=== PATIENT | male | born 1995 | race Caucasian/White ===

== ENCOUNTER 2017-05-08 11:55 | Emergency (ER) | payer OTHER ==
[~2017-05-08] VITALS: Ht 175.3 cm; Wt 81.1 kg
[2017-05-08 11:57] VITALS: Ht 175.3 cm; Wt 81.1 kg
[2017-05-08] MEDS ORDERED: DiphenhydrAMINE HCL 50 MG/ML VIAL IV STA (13:07)
[2017-05-08] MEDS ORDERED: PROCHLORPERAZINE 5 MG/ML 2 ML VIAL IV STA (13:07)
[2017-05-08] MEDS ORDERED: SODIUM CHLORIDE 0.9% 1000ML 2,000 ML IV STA (13:07)
[2017-05-08 13:27] LABS: BASO % 0.2 %; BASO ABS # 0.02 K/uL (0-0.2); COMPLETE YES; HEMATOCRIT 43.7 % (42-52); IG% 0.3 %; LYMPH % 8.4 %; LYMPH ABS # 0.82 K/uL (1.2-3.4); MEAN CELL VOLUME 83.2 fL (80-100); MEAN CORPUSCULAR HEMOGLOBIN 29.3 pg (25-34); MEAN CORPUSCULAR HGB CONC 35.2 g/dl (32-36); MONO % 6.1 %; PLATELET COUNT 289 K/uL (130-400); RED BLOOD COUNT 5.25 M/uL (4.7-6.1); WHITE BLOOD COUNT 9.78 K/uL (4.8-10.8)
[2017-05-08 13:42] LABS: INR 1.1 (0.9-1.1); PROTHROMBIN TIME (PATIENT) 11.3 SECONDS (9.0-12.0)
--- NOTE | 2017-05-08 13:44 | EMERGENCY ROOM VISIT NOTE ---
History Report prepared by Mituliblisa: Leticia Mccabe Under the Supervision of: Dr. Ana Luisa Harris M.D. First contact with patient: 12:18 Chief Complaint: ABDOMINAL PAIN Stated Complaint: STOMACH AND DEHYDRATION Nursing Triage Summary: Pt stated that he has an ulcer. When the pt consumes alcohol it irriates his ulcer. Pt stated that he was drinking an unknown amount of alcohol last evening. Pt was woke up by stabbing abdominal pain. Pt started to vomit. Emesis is red in color wo clots. Pt stated the pain is a 10 out of 10. Pt stated "If I drink too much this happens." History of Present Illness The patient is a 22 year old male who presents to the Emergency Room with complaints of severe diffuse abdominal pain starting this morning. He describes it as a cramping pain. The patient has an ulcer. He drank an unknown amount of alcohol last night. The patient stopped drinking around 1 am last night. He woke up this morning with severe pain. The patient started vomiting this morning. He denies any blood in vomit. He drank some red Gatorade a few minutes ago and is now having red colored vomit. He denies any fevers, chills, or any other complaints. He does not have any other medical problems. He did not use any recreational drugs. Source of History: patient Onset: this morning Position: abdomen (diffuse) Symptom Intensity: severe Quality: cramping Associated Symptoms: + vomiting, No fevers, No chills Review of Systems See HPI for pertinent positives & negatives. A total of 10 systems reviewed and were otherwise negative. Past Medical & Surgical Medical Problems: (1) Gastric ulcer Family History Patient reports no known family medical history. Social History Smoking Status: Former Smoker Alcohol Use: heavy Marital Status: single Housing Status: lives with friends Occupation Status: [employer] student Current/Historical Medications Scheduled Omeprazole (Prilosec), 20 MG PO DAILY Allergies Coded Allergies: No Known Allergies (Unverified , 08/23/16) Physical Exam Vital Signs Date Time Temp Pulse Resp B/P (MAP) Pulse Ox O2 Delivery O2 Flow Rate FiO2 05/08/17 17:07 36.7 66 14 110/70 99 05/08/17 15:38 70 16 108/69 98 Room Air 05/08/17 13:45 79 05/08/17 13:34 86 16 110/71 98 Room Air 05/08/17 11:57 36.7 79 18 137/77 100 Room Air Physical Exam Vital signs reviewed. General: Well-appearing, anxious, hyperventilating, in no significant distress. Clear red vomit at the bedside. HEENT: No scleral icterus, PERRLA, neck supple. Atraumatic. Cardiovascular: Regular rate and rhythm, no extra sounds. Pulmonary: Clear to auscultation bilaterally, normal work of breathing. Abdomen: Soft, diffusely tender abdomen particularly in the epigastric region, nondistended, positive bowel sounds. Musculoskeletal: Atraumatic, no peripheral edema. Neurologic: Patient awake alert and oriented x 3. Skin: Warm, dry, no rash Medical Decision & Procedures ER Provider Diagnostic Interpretation: X-ray results as stated below per interpretation by me and the radiologist: PA CHEST RADIOGRAPH AND UPRIGHT AND SUPINE AP RADIOGRAPHS OF THE ABDOMEN CLINICAL HISTORY: Abdominal pain, vomiting and gastritis. COMPARISON STUDY: No previous studies for comparison. FINDINGS: Lung volumes are normal. Lungs are clear. There is no pneumothorax or pleural effusion. Cardiac size is normal. Mediastinal contours are normal. There is no free air. The bowel gas pattern is normal. A right pelvic calcification likely reflects a phlebolith. IMPRESSION: 1. No free air or evidence of bowel obstruction. 2. No acute cardiomegaly findings. Electronically signed by: Yunier Murry M.D. 05/08/2017 4:48 PM Dictated Date/Time: 05/08/2017 4:47 PM Laboratory Results 05/08/17 13:15 Red Blood Count 5.25, Mean Corpuscular Volume 83.2, Mean Corpuscular Hemoglobin 29.3, Mean Corpuscular Hemoglobin Concent 35.2, Mean Platelet Volume 10.0, Neutrophils (%) (Auto) 85.0, Lymphocytes (%) (Auto) 8.4, Monocytes (%) (Auto) 6.1, Eosinophils (%) (Auto) 0.0, Basophils (%) (Auto) 0.2, Neutrophils # (Auto) 8.31, Lymphocytes # (Auto) 0.82, Monocytes # (Auto) 0.60, Eosinophils # (Auto) 0.00, Basophils # (Auto) 0.02 05/08/17 13:15 Test 05/08/17 13:15 05/08/17 16:05 White Blood Count 9.78 K/uL (4.8-10.8) Red Blood Count 5.25 M/uL (4.7-6.1) Hemoglobin 15.4 g/dL (14.0-18.0) Hematocrit 43.7 % (42-52) Mean Corpuscular Volume 83.2 fL (80-100) Mean Corpuscular Hemoglobin 29.3 pg (25-34) Mean Corpuscular Hemoglobin Concent 35.2 g/dl (32-36) Platelet Count 289 K/uL (130-400) Mean Platelet Volume 10.0 fL (7.4-10.4) Neutrophils (%) (Auto) 85.0 % Lymphocytes (%) (Auto) 8.4 % Monocytes (%) (Auto) 6.1 % Eosinophils (%) (Auto) 0.0 % Basophils (%) (Auto) 0.2 % Neutrophils # (Auto) 8.31 K/uL (1.4-6.5) Lymphocytes # (Auto) 0.82 K/uL (1.2-3.4) Monocytes # (Auto) 0.60 K/uL (0.11-0.59) Eosinophils # (Auto) 0.00 K/uL (0-0.5) Basophils # (Auto) 0.02 K/uL (0-0.2) RDW Standard Deviation 37.1 fL (36.4-46.3) RDW Coefficient of Variation 12.3 % (11.5-14.5) Immature Granulocyte % (Auto) 0.3 % Immature Granulocyte # (Auto) 0.03 K/uL (0.00-0.02) Prothrombin Time 11.3 SECONDS (9.0-12.0) Prothromb Time International Ratio 1.1 (0.9-1.1) Activated Partial Thromboplast Time 26.6 SECONDS (21.0-31.0) Partial Thromboplastin Ratio 1.0 Anion Gap 9.0 mmol/L (3-11) Est Creatinine Clear Calc Drug Dose 95.8 ml/min Estimated GFR () 98.2 Estimated GFR (Non- 84.7 BUN/Creatinine Ratio 9.8 (10-20) Calcium Level 10.2 mg/dl (8.5-10.1) Total Bilirubin 0.8 mg/dl (0.2-1) Direct Bilirubin 0.2 mg/dl (0-0.2) Aspartate Amino Transf (AST/SGOT) 33 U/L (15-37) Alanine Aminotransferase (ALT/SGPT) 32 U/L (12-78) Alkaline Phosphatase 66 U/L (45-117) Total Protein 8.0 gm/dl (6.4-8.2) Albumin 4.7 gm/dl (3.4-5.0) Urine Color YELLOW Urine Appearance CLEAR (CLEAR) Urine pH 7.5 (4.5-7.5) Urine Specific [place] 1.020 (1.000-1.030) Urine Protein NEG (NEG) Urine Glucose (UA) NEG (NEG) Urine Ketones 2+ (NEG) Urine Occult Blood NEG (NEG) Urine Nitrite NEG (NEG) Urine Bilirubin NEG (NEG) Urine Urobilinogen NEG (NEG) Urine Leukocyte Esterase NEG (NEG) Laboratory results per my review. Medications Administered Medications (Trade) Dose Ordered Sig/Anai Route Start Time Stop Time Status Last Admin Dose Admin Sodium Chloride 2,000 ml @ 999 mls/hr Q2H1M STAT IV 05/08/17 13:07 05/08/17 15:07 DC 05/08/17 13:21 999 MLS/HR Prochlorperazine Edisylate (Compazine Inj) 10 mg NOW STAT IV 05/08/17 13:07 05/08/17 13:09 DC 05/08/17 13:29 10 MG Diphenhydramine HCl (Benadryl Inj) 50 mg NOW STAT IV 05/08/17 13:07 05/08/17 13:09 DC 05/08/17 13:30 50 MG Pantoprazole Sodium 40 mg/ Syringe 10 ml @ 5 mls/min NOW ONCE IV 05/08/17 14:45 05/08/17 14:46 DC 05/08/17 15:08 5 MLS/MIN ED Course 1218: Past medical records reviewed. The patient was evaluated in room C12B. A complete history and physical examination was performed. 1307: Benadryl Inj 50 mg IV, Compazine Inj 10 mg IV, Sodium Chloride 2000 ml @ 999 mls/hr IV 1445: Pantoprazole Sodium 40 mg/Syringe 10 ml @ 5 mls/min IV 1701: Upon reevaluation, the patient appeared to have improvement of his symptoms. I discussed findings with him. He verbalized agreement of the treatment plan. He was discharged home. Medical Decision Medication Reconciliation: I attest that I have personally reviewed the patient' s current medication list. Blood Pressure Screening: Patient was found to have normal blood pressure on screening and does not require follow-up. Differential diagnosis: Etiologies such as peptic ulcer, perforated viscous, gastroenteritis, food borne illness, infections, appendicitis, diverticulitis, inflammatory bowel disease, obstruction, GI bleed, biliary pathology, as well as others were entertained. This patient was evaluated and appeared to be in no significant distress. IV access was obtained and laboratory work was drawn. Patient was hydrated with normal saline solution, given IV Benadryl, IV Compazine. Patient was later given IV Protonix. Abdominal x-ray series reveals no obstruction or free air. Laboratory work is fairly unrevealing. Patient was feeling improved. He was discharged to continue Prilosec 20 mg daily. He will avoid alcohol, particularly in excess. He was advised to avoid NSAIDs. He will drink plenty of clear fluid and advance his diet slowly as tolerated. He will return to the ER for worsening of symptoms or any medical concerns. Impression Primary Impression: Alcoholic gastritis Scribe Attestation The scribe's documentation has been prepared under my direction and personally reviewed by me in its entirety. I confirm that the note above accurately reflects all work, treatment, procedures, and medical decision making performed by me. Departure Information Dispostion Home / Self-Care Prescriptions Omeprazole (PRILOSEC) 20 Mg Capcr 20 MG PO DAILY, #14 CAP Prov: Ana Luisa Harris M.D. 05/08/17 Referrals No Doctor, Assigned (PCP) Forms HOME CARE DOCUMENTATION FORM, IMPORTANT VISIT INFORMATION Patient Instructions My [facility] Additional Instructions Diagnosis: Alcohol gastritis Prilosec 20 mg daily for the next 2 weeks. Drink plenty of clear fluids. Avoid alcohol, Aleve, ibuprofen, aspirin. Follow-up with your physician for reevaluation and consideration of gastroenterology referral for endoscopy. Return to the emergency department for worsening of symptoms or any medical concerns.
[2017-05-08 13:57] LABS: BUN/CREATININE RATIO 9.8 (10-20); CALCIUM 10.2 mg/dl (8.5-10.1); CREATININE 1.2 mg/dl (0.60-1.40); POTASSIUM 3.7 mmol/L (3.5-5.1)
[2017-05-08] MEDS ORDERED: PANTOprazole INJ 40 MG in SYRINGE 0 ML IV ONE (14:45)
[2017-05-08 16:22] LABS: URINE APPEARANCE CLEAR (CLEAR); URINE BILIRUBIN NEG (NEG); URINE COLOR YELLOW; URINE NITRITE NEG (NEG); URINE PH 7.5 (4.5-7.5); UROBILINOGEN NEG (NEG); ZZUR CULT IF INDIC CLEAN CATCH NO
[2017-05-08 16:30] LABS: MANUAL MICROSCOPIC REQUIRED? NO; REVIEW REQ? NO
--- NOTE | 2017-05-08 16:49 | DIAGNOSTIC IMAGING REPORT ---
PA CHEST RADIOGRAPH AND UPRIGHT AND SUPINE AP RADIOGRAPHS OF THE ABDOMEN CLINICAL HISTORY: Abdominal pain, vomiting and gastritis. COMPARISON STUDY: No previous studies for comparison. FINDINGS: Lung volumes are normal. Lungs are clear. There is no pneumothorax or pleural effusion. Cardiac size is normal. Mediastinal contours are normal. There is no free air. The bowel gas pattern is normal. A right pelvic calcification likely reflects a phlebolith. IMPRESSION: 1. No free air or evidence of bowel obstruction. 2. No acute cardiomegaly findings. Electronically signed by: Yunier Murry M.D. 05/08/2017 4:48 PM Dictated Date/Time: 05/08/2017 4:47 PM
[2017-05-08] MEDS ORDERED: PRLSR20 PO (16:51)
[2017-05-08 17:07] VITALS: BP 110/70; PULSE 66; TEMP 36.7; O2SAT 99
== END 2017-05-08 17:07 | disposition home or self-care (01) ==
LOC: C.EDB 11:58 → C.EDC 17:07
DX: K29.20 Alcoholic gastritis without bleeding (principal); Z79.899 Other long term (current) drug therapy; Z87.891 Personal history of nicotine dependence